=== PATIENT | female | born 1985 | race Caucasian/White ===

== ENCOUNTER 2016-12-14 15:56 | Emergency (ER) | payer SELFPAY ==
[2016-12-14 16:03] VITALS: RESP 16; TEMP 97.9
--- NOTE | 2016-12-14 16:59 | CPEKG ---
Heart Rate: 62 RR Interval: 968 P-R Interval: 120 QRSD Interval: 116 QT Interval: 404 QTC Interval: 411 P Peculiar: 60 QRS Peculiar: 58 T Wave Peculiar: 22 EKG Severity - ABNORMAL ECG - EKG Impression: SINUS RHYTHM EKG Impression: INCOMPLETE RIGHT BUNDLE BRANCH BLOCK Electronically Signed By: Juliana Kitchen 14-Dec-2016 22:31:59
--- NOTE | 2016-12-14 17:00 | EDPHY ---
H & P Stated Complaint: epigastric pain rad to back - Personal History LMP (Females 10-55): 15-21 Days Ago Current Tetanus/Diphtheria Vaccine: Yes Current Tetanus Diphtheria and Acellular Pertussis (TDAP): Yes - Medical/Surgical History Hx Asthma: No Hx Chronic Respiratory Disease: No Hx Diabetes: No Hx Cardiac Disease: No Hx Renal Disease: No Hx Cirrhosis: No Hx Alcoholism: No Hx HIV/AIDS: No Hx Splenectomy or Spleen Trauma: No Other PMH: No prior history of appendicitis, abdominal surgery, or PID - Social History Smoking Status: Never smoked Time Seen by Provider: 12/14/16 16:45 HPI/ROS: CHIEF COMPLAINT: abdominal pain, dyspnea resolved HISTORY OF PRESENT ILLNESS: 31-year-old female history of cholelithiasis, arrives via taxi stating that at 3:00 p.m. today while she was seated at her desk she had sudden onset of epigastric pain described as "hands wrapping and squeezing around me" with associated diaphoresis and dyspnea. The pain lasted 20 minutes. She is currently asymptomatic in the ER. She ate spaghetti and meatballs at 1:45 p.m. today REVIEW OF SYSTEMS: A ten point review of systems was performed and is negative with the exception of the items mentioned in the HPI PAST MEDICAL & SURGICAL HISTORY: Cholelithiasis SOCIAL HISTORY: nonsmoker. Works as a massage therapist. Use cocaine several months ago none recently. FAMILY HISTORY: No family history of premature coronary artery disease. She does know limited family contact however PHYSICAL EXAM (Prior to examination, patient consented to physical exam, hands were washed and my usual and customary physical exam procedures followed) 1) GENERAL: Well-developed, well-nourished, alert and oriented. Appears anxious. 2) HEAD: Normocephalic, atraumatic 3) HEENT: Pupils equal, round, reactive to light bilaterally. Sclera anicteric. Nasopharynx, oropharynx, clear, no lesions. Ears bilaterally with normal tympanic membranes. 4) NECK: Full range of motion, no meningeal signs. 5) LUNGS: Clear auscultation bilaterally, no wheezes, no rhonchi, no retractions. 6) HEART: Regular rate and rhythm, no murmur, no heave, no gallop. 7) ABDOMEN: No guarding, no rebound, no focal tenderness, negative McBurney's, negative Hdez's, negative Rovsing's, negative peritoneal sign, 8) MUSCULOSKELETAL: Moving all extremities, no focal areas of tenderness, no obvious trauma. No peripheral edema or discoloration. 9) BACK: No CVA tenderness, no midline vertebral tenderness, no fluctuance, no step-off, no obvious trauma, no visual or palpable abnormality. 10) SKIN: No rash, no petechiae. 11) Psychiatric: Patient is oriented X 3, there is no agitation. DIFFERENTIAL DIAGNOSIS: In no particular order, including but not limited to biliary colic, cholecystitis, peptic ulcer disease, pancreatitis, and gastroenteritis. This is a partial list of diagnoses considered. These considerations are based on history, physical exam, past history and reassessment. (Perla Kumar) Constitutional: Initial Vital Signs Temperature (C) 36.6 C 12/14/16 16:01 Heart Rate 72 12/14/16 16:01 Respiratory Rate 16 12/14/16 16:01 Blood Pressure 134/76 H 12/14/16 16:01 O2 Sat (%) 97 12/14/16 16:01 O2 Delivery Mode Room Air Allergies/Adverse Reactions: codeine Allergy (Verified 12/14/16 16:03) Home Medications: Medication Instructions Recorded NK [No Known Home Meds] 12/14/16 Medical Decision Making ED Course/Re-evaluation: Patient was re-evaluated with serial examinations. At most recent examination she is sleeping, easily woken, smiling, states that she is asymptomatic. Discussed case with secondary supine position Dr. Juliana Kitchen. We discussed her imaging and diagnostic results. Think that pulmonary embolus less than likely in the presence of negative D-dimer. She is noted to have cholelithiasis with no evidence of acute cholecystitis. We discussed possibility that her symptoms may be related to acute biliary colic noting that she had eaten spaghetti and meatballs prior to this episode. I do not think that emergent surgical consultation or emergent cholecystectomy is indicated however I have recommend she follow up with surgeon and have provided her with this follow-up/referral information. Doubt ND, specialist patient notes that she bicycles to work daily and bicycle to a coffee shop while she was acute asymptomatic and bicycling did not worsen her symptoms. We also discussed possibility that her pain may have been secondary to acute nephrolithiasis. However at this point, as she is asymptomatic, headache has no evidence of bacteriuria/pyuria, I do not think that the benefits of CT imaging outweigh the risks. (Perla Kumar) Other Provider: The patient was evaluated and managed by the physician railway yard assistant. I have reviewed this chart and I agree with the findings and plan of care as documented , as indicated by my signature. I am the secondary supervising physician. ( Juliana Kitchen) - Data Points Laboratory Results: Laboratory Results 12/14/16 17:00 12/14/16 17:00 Departure - Departure Disposition: Home, Routine, Self-Care Clinical Impression: Cholelithiasis Condition: Good Instructions: Gallstones (ED) Additional Instructions: Seek immediate medical attention if you develop new or worsening symptoms, if you develop fevers, chills, inability to tolerate oral intake or any other symptoms that concerns you. Eat a low-fat diet. Return to the ER immediately if you develop new or return of symptoms. Referrals: Arun Ulrich MD [Medical Doctor] - 1-2 days without fail
[2016-12-14 17:16] LABS: % IMMATURE GRANULYOCYTES 0.6 % (0.0-1.1); ABSOLUTE IMMATURE GRANULOCYTES 0.09 10^3/uL (0.00-0.10); ADD DIFF? NO; ADD MORPH? NO; ADD SCAN? NO; ATYPICAL LYMPHOCYTE FLAG 0 (0-99); FRAGMENT RBC FLAG 0 (0-99); HEMATOCRIT 45.8 % (38.0-47.0); HEMOGLOBIN 15.4 g/dL (12.6-16.3); LEFT SHIFT FLG 0 (0-99); LIPEMIA HEMOLYSIS FLAG 80 (0-99); MEAN CELL HEMOGLOBIN 28.7 pg (27.9-34.1); MEAN CELL HEMOGLOBIN CONCENTR. 33.6 g/dL (32.4-36.7); MEAN CELL VOLUME 85.4 fL (81.5-99.8); MEAN PLATELET VOLUME 9.7 fL (8.7-11.7); PLATELET CLUMPS FLAG 0 (0-99); PLATELET COUNT 255 10^3/uL (150-400); RED BLOOD CELL COUNT 5.36 10^6/uL (4.18-5.33); RED CELL DISTRIBUTION WIDTH 13.1 % (11.5-15.2)
[2016-12-14 17:30] LABS: ALANINE AMINOTRANSFERASE 77 IU/L (9-52); ALBUMIN 4.5 g/dL (3.5-5.0); ALKALINE PHOSPHATASE 61 IU/L (38-126); ANION GAP 13 mEq/L (8-16); ASPARTATE AMINOTRANSFERASE 143 IU/L (14-46); BILIRUBIN,TOTAL 1.4 mg/dL (0.1-1.4); BILIRUBIN-CONJUGATED 0.7 mg/dL (0.0-0.5); BILIRUBIN-UNCONJUGATED 0.7 mg/dL (0.0-1.1); CALCIUM 9.8 mg/dL (8.5-10.4); CARBON DIOXIDE 20 mEq/l (22-31); CHLORIDE 106 mEq/L (97-110); CREATININE 0.6 mg/dL (0.6-1.0); GLOMERULAR FILTRATION RATE > 60; GLUCOSE 107 mg/dL (70-100); POTASSIUM 4.2 mEq/L (3.5-5.2); SODIUM 139 mEq/L (134-144); TOTAL PROTEIN 7.5 g/dL (6.3-8.2)
[2016-12-14 17:40] LABS: TROPONIN I < 0.012 ng/mL (0-0.034)
[2016-12-14 18:30] LABS: COLOR YELLOW; LEUKOCYTE ESTERASE,URINE NEGATIVE (NEGATIVE); NITRITE,URINE NEGATIVE (NEGATIVE)
[2016-12-14 18:37] LABS: BACTERIA 1+ /hpf (NONE SEEN); MUCUS 1+ /lpf (NONE-1+); WBC,URINE NONE SEEN /hpf (0-3)
[2016-12-14 19:07] VITALS: BP 114/78; PULSE 65; O2SAT 95
== END 2016-12-14 19:06 | disposition home or self-care (01) ==
DX: K80.20 Calculus of gallbladder without cholecystitis without obstruction (principal)

== ENCOUNTER → 2017-08-22 | Outpatient (CLI) | payer MEDICAID | LOC: FIMAGING 11:51 | PROVIDERS: ATTEND Family Medicine | DX: O26.01 Excessive weight gain in pregnancy, first trimester (principal); O09.291 Supervision of pregnancy with other poor reproductive or obstetric history, first trimester; Z3A.12 12 weeks gestation of pregnancy ==

== ENCOUNTER 2017-10-18 17:51 | Emergency (ER) | payer MEDICAID ==
[2017-10-18] MEDS ORDERED: ONDANSETRON 4 MG/2 ML VIAL IVP ONE (18:41)
[2017-10-18] MEDS ORDERED: NS 1,000 ML IV ONE ×3 (18:42→18:51)
--- NOTE | 2017-10-18 18:53 | EDPHY ---
H & P Stated Complaint: n/v Time Seen by Provider: 10/18/17 18:44 HPI/ROS: CHIEF COMPLAINT: Nausea vomiting, HISTORY OF PRESENT ILLNESS: The patient is 32-year-old female currently 21 weeks gestational age by ultrasound. She is followed by Dr. Hinds and has been on Zofran since early in her 1st trimester for continued nausea vomiting. She states that she ran out of Zofran a few days ago and today has not been able to keep any food or fluids down. She feels dehydrated. No urinary symptoms. No fever. No abdominal pain. No diarrhea. Her for previous conceptions or complicated by early miscarriage in the 1st 10 weeks. She has not had any cramping or bleeding. She had single IUP documented on ultrasound several weeks ago. REVIEW OF SYSTEMS: Constitutional: denies: chills, fever, recent illness, recent injury EENTM: denies: blurred vision, double vision, nose congestion Respiratory: denies: cough, shortness of breath Cardiac: denies: chest pain, irregular heart rate, lightheadedness, palpitations Gastrointestinal/Abdominal: See HPI Genitourinary: denies: dysuria, frequency, hematuria, pain Musculoskeletal: denies: joint pain, muscle pain Skin: denies: lesions, rash, jaundice, bruising Neurological: denies: headache, numbness, paresthesia, tingling, dizziness, weakness Hematologic/Lymphatic: denies: blood clots, easy bleeding, easy bruising Immunologic/allergic: denies: HIV/AIDS, transplant EXAM: GENERAL: Well-appearing, well-nourished and in no acute distress. HEAD: Atraumatic, normocephalic. EYES: Pupils equal round and reactive to light, extraocular movements intact, sclera anicteric, conjunctiva are normal. ENT: TMs normal, nares patent, oropharynx clear without exudates. Moist mucous membranes. NECK: Normal range of motion, supple without lymphadenopathy or JVD. LUNGS: Breath sounds clear to auscultation bilaterally and equal. No wheezes rales or rhonchi. HEART: Regular rate and rhythm without murmurs, rubs or gallops. ABDOMEN: Gravid uterus, Soft, nontender, normoactive bowel sounds. No guarding , no rebound. BACK: No CVA tenderness, no spinal tenderness, step-offs or deformities EXTREMITIES: Normal range of motion, no pitting or edema. No clubbing or cyanosis. NEUROLOGICAL: Cranial nerves II through XII grossly intact. Normal speech, normal gait. 5/5 strength, normal movement in all extremities, normal sensation PSYCH: Normal mood, normal affect. SKIN: Warm, dry, normal turgor, no visible rashes or lesions. Source: Patient Exam Limitations: No limitations - Personal History LMP (Females 10-55): Current Tetanus/Diphtheria Vaccine: Yes Current Tetanus Diphtheria and Acellular Pertussis (TDAP): Yes - Medical/Surgical History Hx Asthma: No Hx Chronic Respiratory Disease: No Hx Diabetes: No Hx Cardiac Disease: No Hx Renal Disease: No Hx Cirrhosis: No Hx Alcoholism: No Hx HIV/AIDS: No Hx Splenectomy or Spleen Trauma: No Other PMH: denies - Family History Significant Family History: No pertinent family hx - Social History Smoking Status: Never smoked Alcohol Use: Sober Drug Use: None Constitutional: Initial Vital Signs Temperature (C) 37.2 C 10/18/17 17:57 Heart Rate 73 10/18/17 17:57 Respiratory Rate 16 10/18/17 17:57 Blood Pressure 111/74 10/18/17 17:57 O2 Sat (%) 95 10/18/17 17:57 O2 Delivery Mode Room Air Allergies/Adverse Reactions: codeine Allergy (Verified 10/18/17 17:57) Home Medications: Medication Instructions Recorded Ondansetron Odt [Zofran Odt 4 mg 4 mg PO Q4 PRN #20 tab 10/18/17 (RX)] 10/18/17 Sertraline HCl 10/18/17 Zofran 10/18/17 Medical Decision Making ED Course/Re-evaluation: 7:30 p.m. the patient is feeling completely better. Her abdominal exam remains benign. She has received 1 L of fluids. We will continue with a 2nd L. She is requesting a prescription for Zofran when she goes home. I will also give her a take-home pack. Differential Diagnosis: Partial list of the Differential diagnosis considered include but were not limited to; hyperemesis gravidarum, gastritis and although unlikely based on the history and physical exam, I also considered appendicitis, biliary disease, miscarriage, ovarian cyst, ovarian torsion, ectopic. I discussed these differential diagnoses and the plan with the patient as well as the usual and expected course. The patient understands that the diagnosis is provisional and that in medicine we are not always correct and that further workup is often warranted. Usual and customary warnings were given. All of the patient's questions were answered. The patient was instructed to return to the emergency department should the symptoms at all worsen or return, otherwise to followup with the physician as we discussed. - Data Points Medications Given: Discontinued Medications Sodium Chloride (Ns) 1,000 mls @ 0 mls/hr IV ONCE ONE PRN Reason: Wide Open Stop: 10/18/17 18:43 Last Admin: 10/18/17 18:51 Dose: 1,000 mls Sodium Chloride (Ns) 1,000 mls @ 0 mls/hr IV EDNOW ONE; Wide Open PRN Reason: Protocol Stop: 10/18/17 18:52 Last Admin: 10/18/17 19:10 Dose: 1,000 mls Sodium Chloride (Ns) 1,000 mls @ 0 mls/hr IV EDNOW ONE; Wide Open PRN Reason: Protocol Stop: 10/18/17 18:52 Last Admin: 10/18/17 18:57 Dose: Not Given Ondansetron HCl (Zofran) 4 mg IVP EDNOW ONE Stop: 10/18/17 18:42 Last Admin: 10/18/17 18:51 Dose: 4 mg Ondansetron HCl (Zofran Odt 4 Mg Prepack#2) 1 btl TAKEHOME EDNOW ONE Stop: 10/18/17 19:15 Last Admin: 10/18/17 20:00 Dose: 1 btl Departure - Departure Disposition: Home, Routine, Self-Care Clinical Impression: Nausea and vomiting during Condition: Fair Instructions: Ondansetron (By mouth), Nausea and Vomiting in (ED) Referrals: Colleen Hinds MD [Primary Care Provider] - As per Instructions Prescriptions: Ondansetron Odt [Zofran Odt 4 mg (RX)] 4 mg PO Q4 PRN #20 tab PRN Reason: Nausea & Vomiting
[2017-10-18] MEDS ORDERED: ONDANSETRON 4MG PREPACK#2 BTL TAKEHOME ONE (19:14)
[2017-10-18 20:02] VITALS: BP 100/66
== END 2017-10-18 20:25 | disposition home or self-care (01) ==
DX: O21.0 Mild hyperemesis gravidarum (principal); E86.9 Volume depletion, unspecified; Z3A.21 21 weeks gestation of pregnancy
CPT/HCPCS: 96374; J2405

== ENCOUNTER → 2017-10-30 | Outpatient (CLI) | payer MEDICAID | LOC: FIMAGING 11:38 | PROVIDERS: ATTEND Family Medicine | DX: O26.892 Other specified pregnancy related conditions, second trimester (principal); Z3A.22 22 weeks gestation of pregnancy ==